=== PATIENT | male | born 1995 | race Caucasian/White ===

== ENCOUNTER 2016-05-06 13:24 | Emergency (ER) | payer BC ==
[~2016-05-06] VITALS: Ht 185.4 cm; Wt 54.9 kg
[2016-05-06 13:33] VITALS: BP 116/77; PULSE 80; RESP 16; TEMP 99; O2SAT 99
[2016-05-06] MEDS ORDERED: SUCR1TAB PO (13:48)
[2016-05-06] MEDS ORDERED: OMEP20TA PO (13:48)
--- NOTE | 2016-05-06 16:18 | PD ---
HPI Chief Complaint: ENT Complaint Time Seen by Provider: 13:54 Travel History International Travel<30 days: No Contact w/Intl Traveler<30days: No Traveled to known affect area: No History of Present Illness HPI 21yo M with no PMH presents to the ED with c/o enlarged cervical lymph nodes. Pt had throat pain and was seen by urgent care 3 times and given amoxicillin. States the throat pain has improved but is worried that he is not able to eat as much as he used to. +Cough. Pt denies any fever, drooling, chest pain, sob , n/v, abdominal pain. PFSH Past Medical History ADHD: No Cancer: No Cardiovascular Problems: No Developmental Delay: No Diabetes: No Diminished Hearing: No GERD: Yes Psychiatric: No Immunizations Current: Yes Migraines: No Seizures: No Thyroid Disease: No Ulcer: No Influenza Vaccination: No ?: Not Past Surgical History Tonsillectomy: Yes (Adenoidectomy; tubes in ears) Social History Alcohol Use: No Tobacco Use: Yes Substance Use: No Allergies-Medications (Allergen,Severity, Reaction): Coded Allergies: No Known Allergies (Verified , 05/06/16) Reported Meds & Prescriptions Reported Meds & Active Scripts Active Reported Sucralfate 1 Gm Tab 1 Gm PO TID on empty stomach Omeprazole 20 Mg Tab 20 Mg PO DAILY Review of Systems Except as stated in HPI: all other systems reviewed are Neg Physical Exam Narrative GENERAL: 21yo M not in distress. SKIN: Warm and dry. HEAD: Atraumatic. Normocephalic. EYES: Pupils equal and round. No scleral icterus. No injection or drainage. ENT: Throat: clear. No exudate. No swelling in uvula. Uvula midline. Patent airway. NECK: There are anterior cervical lymph nodes bilaterally but they are not enlarged. No neck swelling, erythema. CARDIOVASCULAR: Regular rate and rhythm. No murmur appreciated. RESPIRATORY: No accessory muscle use. Clear to auscultation. Breath sounds equal bilaterally. GASTROINTESTINAL: Abdomen soft, non-tender, nondistended. No rebound tenderness or guarding. MUSCULOSKELETAL: No obvious deformities. No clubbing. No cyanosis. No edema. NEUROLOGICAL: Awake and alert. No obvious cranial nerve deficits. Motor grossly within normal limits. Normal speech. PSYCHIATRIC: Appropriate mood and affect; insight and judgment normal. Data Data Last Documented VS Vital Signs Date Time Temp Pulse Resp B/P Pulse Ox O2 Delivery O2 Flow Rate FiO2 05/06/16 13:33 99.0 80 16 116/77 99 Orders Soft Tissue Neck (05/06/16 ) MDM Medical Decision Making Medical Screen Exam Complete: Yes Emergency Medical Condition: Yes Interpretation(s) Last Impressions Soft Tissue Neck X-Ray 05/06/16 0000 Signed Impressions: Service Date/Time: Friday, May 06, 2016 16:07 - CONCLUSION: Normal examination. Wolf Davis MD Differential Diagnosis Anxiety vs. hypochondriac vs. epiglottis vs. retropharyngeal abscess Narrative Course 21yo M speaking in complete sentences not in distress here with c/o something behind his throat. Pt has no trouble eating and drinking. Pt also complained of something in his chest but it was his rib that he was pointing to. Reassured pt that he appears well. VS normal. Xray soft tissue neck showed normal exam. Pt clinically does not have strep so will not do rapid strep. Return precautions given. Diagnosis Primary Impression: Pharyngitis Qualified Code: J02.9 - Pharyngitis, unspecified etiology Patient Instructions: General Instructions Departure Forms: Tests/Procedures Additional Instructions: Please follow up with your PMD in 3-7 days. Return to the ED if symptoms worsen. Med/Other Pt SpecificInfo: Prescription(s) given Scripts Acetaminophen Liq (Acetaminophen Extra Strength Liq)500 Mg/15 Ml [id number] Mg PO Q4-6H PRN (PAIN SCALE 1 TO 4) 5 Days Ref 0 Prov:Ceci Coon DO 05/06/16 Disposition: 01 DISCHARGE HOME Condition: Stable Ccei Coon DO May 06, 2016 16:18
--- NOTE | 2016-05-06 16:25 | RADHPO ---
EXAM DATE/TIME: 05/06/2016 16:07 [facility] COMPARISON: No previous studies available for comparison. INDICATIONS : Swollen, painfull lymph nodes, difficult to drink water MEDICAL HISTORY : None. SURGICAL HISTORY : None. ENCOUNTER: Initial ACUITY: 4 - 6 days PAIN SCORE: 6/10 LOCATION: Bilateral neck FINDINGS: Two view examination of the soft tissues of the neck demonstrates the hypopharyngeal airway to have a grossly normal configuration. The trachea is midline. No radiopaque foreign bodies are seen. CONCLUSION: Normal examination. Wolf Davis MD on May 06, 2016 at 16:24 Board Certified Radiologist. This report was verified electronically.
[2016-05-06] MEDS ORDERED: ACET500L PO (16:45)
[2016-05-06 17:00] VITALS: BP 118/76; TEMP 98.9
== END 2016-05-06 17:01 | disposition home or self-care (01) ==
LOC: PHED 13:24
DX: J02.9 Acute pharyngitis, unspecified (principal); K21.9 Gastro-esophageal reflux disease without esophagitis; Z72.0 Tobacco use
CPT/HCPCS: 70360; 99283

== ENCOUNTER 2016-07-26 09:35 | Emergency (ER) | payer BC ==
[~2016-07-26] VITALS: Ht 185.4 cm; Wt 52.9 kg
[~2016-07-26 09:35] MED LIST: ACET500L PO; OMEP20TA PO; SUCR1TAB PO
[2016-07-26 09:41] VITALS: BP 119/81; PULSE 93; RESP 16; TEMP 98.3; O2SAT 100
--- NOTE | 2016-07-26 09:55 | PD ---
HPI Chief Complaint: Chest Pain Time Seen by Provider: 09:52 Travel History International Travel<30 days: No Contact w/Intl Traveler<30days: No Traveled to known affect area: No History of Present Illness HPI Patient is a 21-year-old male presents emergency Department with complaints of chest tightness and shortness of breath. Patient states she's been dealing with this at home had not had any problems until this morning when he had a cough productive of a large amount of sputum which she states was almost completely blood. Patient states this never happened before. Denies history of foreign travel denies a history of tuberculosis exposure denies a history of being jailed. Patient states he has a history of reflux and has been worked up by an ENT as well as having an endoscopy which was remote. He denies any upper respiratory symptoms other than the cough denies any fever. PFSH Past Medical History ADHD: No Cancer: No Cardiovascular Problems: No Developmental Delay: No Diabetes: No Diminished Hearing: No GERD: Yes Psychiatric: No Immunizations Current: Yes Migraines: No Seizures: No Thyroid Disease: No Ulcer: No Tetanus Vaccination: < 5 Years Past Surgical History Tonsillectomy: Yes (Adenoidectomy; tubes in ears) Other Surgery: Yes (ENDOSCOPY - UPPER) Social History Alcohol Use: No Tobacco Use: Yes Substance Use: No Allergies-Medications (Allergen,Severity, Reaction): Coded Allergies: No Known Allergies (Verified , 05/06/16) Reported Meds & Prescriptions Reported Meds & Active Scripts Active Omeprazole 20 Mg Tab 20 Mg PO DAILY Reported Sucralfate 1 Gm Tab 1 Gm PO TID on empty stomach Review of Systems Except as stated in HPI: all other systems reviewed are Neg Physical Exam Narrative GENERAL: Well-developed well-nourished, thin build. No apparent distress. SKIN: Focused skin assessment warm/dry. HEAD: Atraumatic. Normocephalic. EYES: Pupils equal and round. No scleral icterus. No injection or drainage. ENT: No nasal bleeding or discharge. Mucous membranes pink and moist. TMs clear bilaterally, oropharynx clear and moist. NECK: Trachea midline. No JVD. CARDIOVASCULAR: Regular rate and rhythm. No murmur appreciated. RESPIRATORY: No accessory muscle use. Clear to auscultation. Breath sounds equal bilaterally. GASTROINTESTINAL: Abdomen soft, non-tender, nondistended. Hepatic and splenic margins not palpable. MUSCULOSKELETAL: No obvious deformities. No clubbing. No cyanosis. No edema. NEUROLOGICAL: Awake and alert. No obvious cranial nerve deficits. Motor grossly within normal limits. Normal speech. PSYCHIATRIC: Appropriate mood and affect; insight and judgment normal. Data Data Last Documented VS Vital Signs Date Time Temp Pulse Resp B/P Pulse Ox O2 Delivery O2 Flow Rate FiO2 07/26/16 10:48 73 16 119/67 100 07/26/16 10:05 Room Air 07/26/16 09:41 98.3 Orders Basic Metabolic Panel (Bmp) (07/26/16 09:52) Complete Blood Count With Diff (07/26/16 09:52) D-Dimer (07/26/16 09:52) Prothrombin Time / Inr (Pt) (07/26/16 09:52) Act Partial Throm Time (Ptt) (07/26/16 09:52) Troponin I (07/26/16 09:52) Ecg Monitoring (07/26/16 09:52) Iv Access Insert/Monitor (07/26/16 09:52) Oximetry (07/26/16 09:52) Oxygen Administration (07/26/16 09:52) Sodium Chloride 0.9% Flush (Ns Flush) (07/26/16 10:00) Chest, Pa & Lat (07/26/16 09:52) Labs Laboratory Tests Test 07/26/16 09:55 White Blood Count 4.9 TH/MM3 Red Blood Count 4.90 MIL/MM3 Hemoglobin 14.5 GM/DL Hematocrit 43.5 % Mean Corpuscular Volume 88.8 FL Mean Corpuscular Hemoglobin 29.7 PG Mean Corpuscular Hemoglobin 33.5 % Concent Red Cell Distribution Width 12.9 % Platelet Count 201 TH/MM3 Mean Platelet Volume 8.9 FL Neutrophils (%) (Auto) 70.3 % Lymphocytes (%) (Auto) 19.2 % Monocytes (%) (Auto) 8.7 % Eosinophils (%) (Auto) 1.2 % Basophils (%) (Auto) 0.6 % Neutrophils # (Auto) 3.5 TH/MM3 Lymphocytes # (Auto) 0.9 TH/MM3 Monocytes # (Auto) 0.4 TH/MM3 Eosinophils # (Auto) 0.1 TH/MM3 Basophils # (Auto) 0.0 TH/MM3 CBC Comment DIFF FINAL Differential Comment Prothrombin Time 11.4 SEC Prothromb Time International 1.0 RATIO Ratio Activated Partial 26.7 SEC Thromboplast Time D-Dimer Quantitative (PE/DVT) LESS THAN 0.19 MG/L FEU Sodium Level 144 MEQ/L Potassium Level 3.7 MEQ/L Chloride Level 109 MEQ/L Carbon Dioxide Level 28.2 MEQ/L Anion Gap 7 MEQ/L Blood Urea Nitrogen 13 MG/DL Creatinine 0.93 MG/DL Estimat Glomerular Filtration 102 ML/MIN Rate Random Glucose 99 MG/DL Calcium Level 9.1 MG/DL Troponin I LESS THAN 0.02 NG/ML MDM Medical Decision Making Medical Screen Exam Complete: Yes Emergency Medical Condition: Yes Interpretation(s) EKG shows normal sinus rhythm with normal axis and normal R-wave progression. Intervals within normal limits. No concerning ST T changes. This normal EKG. Differential Diagnosis PE seems unlikely, GERD, esophageal varices unlikely, hemoptysis, hematemesis Narrative Course Patient was roomed emergency department, he appears well in no apparent distress. D-dimer was negative, H&H within normal limits. He has had no hematemesis and no hemoptysis while in emerged permit. Chest x-ray was within normal limits: Last 24 hours Impressions Chest X-Ray 07/26/16 0952 Signed Impressions: Service Date/Time: , July 26, 2016 10:02 - CONCLUSION: No acute cardiopulmonary abnormality is identified. Wang West MD My overall impression is this is a healthy 21-year-old male with an event of hemoptysis. He is low likelihood for ACS, low likelihood for esophageal bleeding. He may be having some irritation secondary to GERD but she has long- standing history of. I recommend trying omeprazole and following up with a integrated campaign manager which she is agreeable to. He is stable for discharge at this time. Diagnosis Primary Impression: Hemoptysis Additional Impression: Chest pain with low risk for cardiac etiology Additional Instructions: Follow-up with Dr. Crocker by phone to make an appointment within the next week. Recommend he also follow-up with her primary care physician. Return to the emergency department should he have any additional or concerning symptoms. Med/Other Pt SpecificInfo: Prescription(s) given Scripts Omeprazole 20 Mg Tab20 Mg PO DAILY #30 TAB Ref 0 Prov:Chandana Vo MD 07/26/16 Disposition: 01 DISCHARGE HOME Condition: Stable Chandana oV MD July 26, 2016 09:55
[2016-07-26 09:59] VITALS: RESP 16; O2SAT 100
[2016-07-26] MEDS ORDERED: SODIUM CHLORIDE 0.9% FLUSH 10 ML FLUSH IVF PRN (10:00)
[2016-07-26 10:05] LABS: AUTOMATED NEUTROPHIL # 3.5 TH/MM3 (1.8-7.7); BASOPHIL % 0.6 % (0.0-2.0); EOSINOPHIL # 0.1 TH/MM3 (0-0.4); EOSINOPHIL % 1.2 % (0.0-4.0); HEMATOCRIT 43.5 % (39.0-51.0); HEMO FLAGS DIFF FINAL; LYMPH % 19.2 % (9.0-44.0); LYMPHOCYTE # 0.9 TH/MM3 (1.0-4.8); MEAN CELL VOLUME 88.8 FL (80.0-100.0); MEAN CORPUSCULAR HEMOGLOBIN 29.7 PG (27.0-34.0); MEAN CORPUSCULAR HGB CONC 33.5 % (32.0-36.0); MONO % 8.7 % (0.0-8.0); NEUT % 70.3 % (16.0-70.0); PLATELET COUNT 201 TH/MM3 (150-450); RED CELL DISTRIBUTION WIDTH 12.9 % (11.6-17.2); WHITE BLOOD COUNT 4.9 TH/MM3 (4.0-11.0)
--- NOTE | 2016-07-26 10:15 | RADHPO ---
EXAM DATE/TIME: 07/26/2016 10:02 [facility] COMPARISON: No previous studies available for comparison. INDICATIONS : Chest tighness/pain & shortness of breath. MEDICAL HISTORY : Gastroesophageal reflux disease. Smoker. SURGICAL HISTORY : Tonsillectomy. Adenoidectomy. Tubes in ears ENCOUNTER: Initial ACUITY: 4 - 6 days PAIN SCORE: 7/10 LOCATION: chest FINDINGS: PA and lateral views of the chest demonstrate a normal-sized cardiac silhouette. There is no effusion , consolidation, or pneumothorax. The bones and soft tissues demonstrate no acute abnormality. CONCLUSION: No acute cardiopulmonary abnormality is identified. Wang West MD on July 26, 2016 at 10:12 Board Certified Radiologist. This report was verified electronically.
[2016-07-26 10:16] LABS: CHLORIDE 109 MEQ/L (98-107); POTASSIUM 3.7 MEQ/L (3.5-5.1); SODIUM (NA) 144 MEQ/L (136-145)
[2016-07-26 10:19] LABS: ANION GAP 7 MEQ/L (5-15); BICARBONATE 28.2 MEQ/L (21.0-32.0); BLOOD UREA NITROGEN 13 MG/DL (7-18)
[2016-07-26 10:23] LABS: GLOMERULAR FILTRATION RATE 102 ML/MIN (>89)
[2016-07-26 10:34] LABS: APTT (PATIENT) 26.7 SEC (24.3-30.1); PROTHROMBIN TIME - PATIENT 11.4 SEC (9.8-11.6)
[2016-07-26 10:48] VITALS: BP 119/67
[2016-07-26] MEDS ORDERED: OMEP20TA PO (10:49)
--- NOTE | 2016-07-27 15:51 | EKG ---
Date Performed: 07/26/2016 Time Performed: 09:42:54 PTAGE: 21 years EKG: Sinus rhythm Normal ECG NO PREVIOUS TRACING DOCTOR: Montrell Jovel Interpretating Date/Time 07/27/2016 15:42:03
== END 2016-07-26 11:02 | disposition home or self-care (01) ==
LOC: PHED 09:35
DX: R04.2 Hemoptysis (principal); R07.9 Chest pain, unspecified; Z72.0 Tobacco use
CPT/HCPCS: 71020; 80048; 84484; 85025; 85379; 85610; 85730; 93005; 99283

== ENCOUNTER 2017-05-19 13:07 | Emergency (ER) | payer BC ==
[~2017-05-19] VITALS: Ht 185.4 cm; Wt 52.6 kg
[~2017-05-19 13:07] MED LIST changes: -ACET500L PO; -OMEP20TA PO; +OMEP20TA93 PO
[2017-05-19 13:08] VITALS: BP 126/69; PULSE 77; RESP 18; TEMP 98.2; O2SAT 97
[2017-05-19] MEDS ORDERED: PRED5PAK PO (13:21)
--- NOTE | 2017-05-19 14:09 | PD ---
HPI Chief Complaint: Pain: Acute or Chronic Time Seen by Provider: 13:54 Travel History International Travel<30 days: No Contact w/Intl Traveler<30days: No Traveled to known affect area: No History of Present Illness HPI 22-year-old male here with right-sided neck pain 1 week. He denies injury or trauma. He reports he may supplement neck. He has pain in the lateral aspect worse with movement slightly relieved with rest. No fever chills. No swelling the neck or difficulty swallowing. Symptoms severity mild. PFSH Past Medical History Medical History: Denies Significant Hx ADHD: No Cancer: No Cardiovascular Problems: No Developmental Delay: No Diabetes: No Diminished Hearing: No GERD: Yes Psychiatric: No Immunizations Current: Yes Migraines: No Seizures: No Thyroid Disease: No Ulcer: No Influenza Vaccination: No Past Surgical History Surgical History: No Previous Surgery Tonsillectomy: Yes (Adenoidectomy; tubes in ears) Other Surgery: Yes (ENDOSCOPY - UPPER) Social History Alcohol Use: No Tobacco Use: No (QUIT LAST WEEK) Substance Use: No Allergies-Medications (Allergen,Severity, Reaction): Coded Allergies: MRI PRECAUTION (Verified Allergy, Unknown, rash, 05/19/17) Reported Meds & Prescriptions Reported Meds & Active Scripts Active Reported Prednisone (21) 5 mg tab Dose Pack (Prednisone) 5 Mg Dspk 5 Mg PO DIRECTED Review of Systems Except as stated in HPI: all other systems reviewed are Neg General / Constitutional: No: Fever Eyes: No: Visual changes HENT: No: Headaches Cardiovascular: No: Chest Pain or Discomfort Respiratory: No: Shortness of Breath Gastrointestinal: No: Abdominal Pain Genitourinary: No: Dysuria Physical Exam Narrative GENERAL: Alert and well-appearing 22-year-old male SKIN: Warm and dry. HEAD: Normocephalic. EYES: No injection or drainage. Ear/nose/throat: No pharyngeal erythema. No tonsillar hypertrophy. Today. Uvula is midline. NECK: Supple, trachea midline. No JVD or lymphadenopathy, or neck mass.+TTP right trapezius muscle. No cervical midline tenderness. Data Data Last Documented VS Vital Signs Date Time Temp Pulse Resp B/P (MAP) Pulse Ox O2 Delivery O2 Flow Rate FiO2 05/19/17 13:08 98.2 77 18 126/69 (88) 97 MDM Medical Decision Making Medical Screen Exam Complete: Yes Emergency Medical Condition: Yes Differential Diagnosis Trapezius muscle spasm, neck strain, unlikely cervical spine fracture Narrative Course 22-year-old male here with right trapezius muscle spasm and neck pain. No midline spine tenderness. He has a normal neurologic exam. Patient be treated with NSAIDs and muscle relaxers. Diagnosis Primary Impression: Trapezius muscle spasm Referrals: Primary Care Physician Additional Instructions: Medication as directed. ICE or heat for comfort. Follow-up the primary doctor. Return if he developed new or worsening symptoms Scripts Methocarbamol (Robaxin) 750 Mg Tab 750 MG PO QID for Muscle Spasm, #12 TAB 0 Refills Prov: Kacie Rodgers 05/19/17 Ibuprofen (Ibuprofen) 800 Mg Tab 800 MG PO Q6HR Y for PAIN, #40 TAB 0 Refills Prov: Kacie Rodgers 05/19/17 Disposition: 01 DISCHARGE HOME Condition: Stable Kacie Rodgers May 19, 2017 14:09
[2017-05-19] MEDS ORDERED: IBUP1TAB7 PO (14:10)
[2017-05-19] MEDS ORDERED: ROBA750T PO (14:10)
== END 2017-05-19 14:20 | disposition home or self-care (01) ==
LOC: PHEFT 13:07
DX: M62.830 Muscle spasm of back (principal); K21.9 Gastro-esophageal reflux disease without esophagitis
CPT/HCPCS: 99283